=== PATIENT | female | born 1960 | race Caucasian/White ===

== ENCOUNTER 2024-11-02 09:12 | Emergency (ER) | payer OTHER, SELFPAY ==
[2024-11-02 09:17] VITALS: BP 166/94
[2024-11-02 09:39] VITALS: BP 153/76
--- NOTE | 2024-11-02 09:47 | ED.GENMED ---
History of Present Illness
General
Chief Complaint: Heart Rate Problem
Time Seen by Provider: 11/02/24 09:34
History of Present Illness
History of Present Illness:
64-year-old female with history of paroxysmal A-fib presents to the emergency department for evaluation of heart palpitations as well as lightheadedness. She underwent a minimally invasive mitral valve repair at [facility] in [facility]
[place] in May 2024, developed postoperative A-fib. States that she was treated with a '30-day medication' that resolved her A-fib and she has been asymptomatic since. She is maintained on metoprolol and Eliquis at this point. She denies chest
pain or shortness of breath but notes 'jumping' feeling in her chest often. No fevers or chills. No recent medication changes.
Note on review of pt's hospitalization via her [employer] account, she was treated with amiodarone briefly for her afib, after converting to NSR this was discontinued
Review of Systems
Review of Systems
Allergies reviewed?: Yes
All Other Systems: ROS reviewed and negative except as documented in HPI and ROS
Phy Exam
Physical Exam
Physical Exam:
GEN: Well appearing, NAD, WDWN
HEENT: Oral mucosa moist, no scleral icterus
Cardiac: Regular rate and rhythm with occasional extrasystoles, no murmur
Lung: No respiratory distress, no tachypnea, lungs clear to auscultation bilaterally
MSK: No gross deformity or injuries
Skin: Good color, no pallor or jaundice, no rashes
Neuro: AO x3, moves all extremities freely
Psych: Calm, cooperative
Course
Orders/Labs/Results
Orders:
Orders
11/02/24 09:22
ECG [Electrocardiogram (*1)] Urgent
Reason for Study: Atrial Fibrillation
EKG- Treatment ONCE
11/02/24 09:50
Complete Blood Count/No Diff Urgent
Comprehensive Metabolic Panel Urgent
Abnormal Lab Results
11/02/24
09:50
Glucose 101 H mg/dl
(70-99)
11/02/24 09:50
11/02/24 09:50
Vital Signs
Initial and Last Documented VS:
Initial Vital Signs
Temp Pulse Resp BP Pulse Ox
97.9 F 68 18 166/94 98
11/02/24 09:17 11/02/24 09:17 11/02/24 09:17 11/02/24 09:17 11/02/24 09:17
Last Documented Vital Signs
Temp Pulse Resp BP Pulse Ox
97.9 F 68 10 132/89 97
11/02/24 09:17 11/02/24 10:00 11/02/24 10:00 11/02/24 10:00 11/02/24 10:00
MDM/Problems Addressed
MDM/Problems Addressed:
Pt identified to have frequent PVCs on telemetry correlating with her symptoms. No e/o significant dysrhythmia. Encouraged her to increase metoprolol however if symptoms are not terribly concerning, would defer to her home dispatcher radioactive waste disposal for further
instruction. Clinically stable and suitable for d/c
Comment
Comment:
EKG independently interpreted by me shows normal sinus rhythm with frequent PVCs, no ST changes concerning for ischemia
*Pulse Oximetry
SaO2: 98
Oxygen Mode of Delivery: Room air
Patient hypoxic: no
*Critical Care Note
Total Time (30-74mins, 75-104mins- exclusive of procedures): Not Applicable
ED Attending Note
-
Portions of this chart may have been created with voice recognition software.� Occasional wrong word or��sound alike� substitutions may have occurred due to the inherent limitations of voice recognition software.
Discharge Plan
Departure
Patient Disposition: Home (Routine Discharge)
Date of Disposition: 11/02/24
Time of Disposition: 10:30
Patient with high blood pressure during this ER visit?: Yes
Discharge Problem:
Symptomatic PVCs
Instructions: Ventricular premature beats
Referrals:
NONE,* [Family Provider, Internal Medicine]
Activity Restrictions/Additional Instructions:
Increase your metoprolol to 75mg daily (1 1/2 50mg tablets)
If the symptoms are not problematic or concerning, you may hold off on medication changes and contact your dispatcher radioactive waste disposal in [place] for further direction
Interventions
Interventions:
*Risk Screen - Suicide Last Done: 11/02/24 09:17
*General Assessment Last Done: 11/02/24 09:55
*Neglect/Abuse Screening Last Done: 11/02/24 09:55
*ED- Fall Risk Assessment Last Done: 11/02/24 09:55
*ED COVID-19 Vaccine History Last Done: 11/02/24 09:55
ED- Cardiac Assessment Last Done: 11/02/24 09:55
ED- Pulmonary Assessment Last Done: 11/02/24 09:55
Discharge Date and Time
Print Language: VIET[place]
[2024-11-02 10:00] VITALS: BP 132/89
[2024-11-02 10:11] LABS: Hematocrit 41.2 % (37.0-47.0); Hemoglobin 14.0 g/dL (12.0-16.0); Mean Corp Hgb Conc. 34.0 g/dL (33.0-37.0); Mean Corpuscular Volume 86.9 fL (81.0-99.0); Platelet Count 298 10^3/uL (130-400); Red Cell Dist. Width 12.3 % (11.5-14.5)
[2024-11-02 10:24] LABS: ALT (SGPT) 23 U/L (0-35); AST (SGOT) 23 U/L (14-36); Albumin 4.9 g/dl (3.5-5.0); Alkaline Phosphatase 56 U/L (38-126); Blood Urea Nitrogen 15 mg/dl (7-17); Calcium 9.6 mg/dl (8.4-10.2); Carbon Dioxide 25 mmol/L (22-30); Chloride 106 mmol/L (98-107); Estimated Creatinine Clearance 83 ml/min; Glucose 101 mg/dl (70-99); Potassium 4.2 mmol/L (3.5-5.1); Sodium 138 mmol/L (135-145); Total Protein 8.0 g/dl (6.3-8.2); eGFR > 60.00
== END 2024-11-02 10:47 | disposition home or self-care (01) ==
LOC: EMR 09:12
PROVIDERS: Physician Assistant; EMERGENCY PHYSICIAN Emergency Medicine
DX: I49.3 Ventricular premature depolarization (principal); I48.0 Paroxysmal atrial fibrillation; Z79.01 Long term (current) use of anticoagulants; Z79.899 Other long term (current) drug therapy
CPT/HCPCS: 99284; 80053; 85027; 93005